=== PATIENT | female | born 1970 | race American Indian/Alaskan Native ===

== ENCOUNTER 2021-10-12 11:23 | Emergency (ER) | payer OTHER ==
[2021-10-12 14:06] LABS: Basophils % (Auto) 0.6 % (0.0-1.8); Eosinophils # (Auto) 0.1 K/mm3 (0.0-0.4); Hematocrit 41.1 % (30.3-42.9); Hemoglobin 13.1 gm/dl (10.1-14.3); Lymphocytes # (Auto) 0.9 K/mm3 (1.2-5.4); Lymphocytes % (Auto) 15.1 % (13.4-35.0); Mean Corpuscular HGB Conc 32 % (30-34); Mean Corpuscular Volume 83 fl (79-97); Monocytes # (Auto) 0.3 K/mm3 (0.0-0.8); Monocytes % (Auto) 5.7 % (0.0-7.3); Platelet Count 228 K/mm3 (140-440); Red Blood Count 4.96 M/mm3 (3.65-5.03); Red Cell Distribution Width 15.8 % (13.2-15.2)
[2021-10-12] MEDS ORDERED: KETOROLAC 10 MG TAB PO ONE (14:27)
[2021-10-12] MEDS ORDERED: ONDANSETRON 4 MG ODT TAB PO ONE (14:27)
[2021-10-12 14:30] LABS: Alanine Aminotransferase 17 units/L (7-56); Blood Urea Nitrogen 14 mg/dL (7-17); Calcium 9.9 mg/dL (8.4-10.2); Hemolysis Index 12
[2021-10-12 14:31] LABS: BUN/Creatinine Ratio 20
[2021-10-12 17:02] LABS: Bacteria,Urine 1+ /HPF (Negative); Bilirubin,Urine NEG (Negative); Blood,Urine NEG (Negative); Color,Urine Yellow (Yellow); Mucus,Urine 1+ /HPF; Urobilinogen,Urine < 2.0 mg/dL (<2.0)
[2021-10-12] MEDS ORDERED: cephALEXin 500 MG CAP PO ONE (17:11)
--- NOTE | 2021-10-12 17:14 | Emergency Department Report ---
ED Abdominal Pain HPI - General Chief Complaint: Abdominal Pain Stated Complaint: LOWER ABD PAIN/REF BY [facility] Time Seen by Provider: 10/12/21 14:25 Source: patient Mode of arrival: Ambulatory Limitations: No Limitations - History of Present Illness Initial Comments: 50-year-old black female with no past medical history presents to the emergency department for evaluation of 2-day history of lower abdominal pain and dysuria. She denies nausea vomiting diarrhea fever and vaginal discharge. She states states that she has had some decrease in appetite. MD Complaint: abdominal pain -: Gradual, days(s) (2) Location: LLQ, RLQ Radiation: none Severity scale (0 -10): 10 Quality: cramping, aching Consistency: intermittent Worsens With: other (Urination) Associated Symptoms: nausea, vomiting, dysuria. denies: diarrhea, fever, chills, constipation, hematemesis, hematochezia, melena, hematuria, anorexia, syncope - Related Data LMP Date: 09/09/21 Previous Rx's Medication Instructions Recorded Last Taken Type Naproxen [Naprosyn] 500 mg PO BID #14 tab 10/12/21 Unknown Rx cephALEXin [Keflex] 500 mg PO Q12HR #14 cap 10/12/21 Unknown Rx Allergies Allergy/AdvReac Type Severity Reaction Status Date / Time No Known Allergies Allergy Unverified 10/12/21 13:14 ED Review of Systems ROS: Stated complaint: LOWER ABD PAIN/REF BY [facility] Other details as noted in HPI Comment: All other systems reviewed and negative Constitutional: denies: chills, diaphoresis, fever, malaise, weakness Eyes: denies: eye pain, eye discharge, vision change ENT: denies: ear pain, throat pain, dental pain Respiratory: denies: cough, orthopnea, shortness of breath, SOB with exertion Cardiovascular: denies: chest pain, palpitations, dyspnea on exertion, orthopnea, edema, syncope Endocrine: no symptoms reported Gastrointestinal: abdominal pain. denies: nausea, vomiting, diarrhea, constipation, hematemesis, melena, hematochezia Genitourinary: dysuria. denies: urgency, frequency, hematuria, discharge, abnormal menses, dyspareunia Musculoskeletal: back pain. denies: joint swelling, arthralgia, myalgia Skin: denies: rash, lesions Neurological: denies: headache, weakness Psychiatric: denies: anxiety, depression Hematological/Lymphatic: denies: easy bleeding, easy bruising ED Past Medical Hx - Medications Home Medications: Home Medications Medication Instructions Recorded Confirmed Last Taken Type Naproxen [Naprosyn] 500 mg PO BID #14 tab 10/12/21 Unknown Rx cephALEXin [Keflex] 500 mg PO Q12HR #14 cap 10/12/21 Unknown Rx ED Physical Exam - General Limitations: No Limitations General appearance: alert, in no apparent distress - Head Head exam: Present: atraumatic, normocephalic - Eye Eye exam: Present: normal appearance. Absent: conjunctival injection - Neck Neck exam: Present: normal inspection, full ROM - Respiratory Respiratory exam: Present: normal lung sounds bilaterally. Absent: respiratory distress, wheezes, rales, rhonchi, stridor, chest wall tenderness, accessory muscle use, decreased breath sounds - Cardiovascular Cardiovascular Exam: Present: regular rate, normal heart sounds - GI/Abdominal GI/Abdominal exam: Present: soft, tenderness (bilateral lower quadrants), normal bowel sounds. Absent: distended, guarding, rebound, rigid - Extremities Exam Extremities exam: Present: normal inspection, full ROM - Back Exam Back exam: Present: normal inspection, CVA tenderness (R), CVA tenderness (L). Absent: full ROM, tenderness, muscle spasm, paraspinal tenderness, vertebral tenderness - Neurological Exam Neurological exam: Present: alert, oriented X3 - Psychiatric Psychiatric exam: Present: normal affect, normal mood - Skin Skin exam: Present: warm, dry, intact, normal color ED Course Vital Signs 10/12/21 10/12/21 10/12/21 12:54 14:51 17:21 Temperature 99.4 F 98.2 F Pulse Rate 78 77 Respiratory 16 14 Rate Blood Pressure 142/88 142/80 [Right] O2 Sat by Pulse 100 Oximetry ED Medical Decision Making - Lab Data Result diagrams: 10/12/21 13:47 10/12/21 13:47 - Medical Decision Making 50-year-old black female with no past medical history presents to the emergency department for evaluation of 2-day history of lower abdominal pain and dysuria. She denies nausea vomiting diarrhea fever and vaginal discharge. She states states that she has had some decrease in appetite. No gross abnormalities to CBC and CMP. UA noted to be positive for leukocyte Estrace and large amounts of WBCs. Patient will be treated for urinary tract infection with Keflex 500 mg p.o. twice daily for 7 days. She was given her first dose here along with 1 Toradol 10 mg p.o. twice daily. She was advised to take medications as prescribed, and follow-up with her primary care provider if no improvement or worsening symptoms. She was advised to follow-up in the emergency department if she has any concerning symptoms or if she develops fever or worsening abdominal pain. She verbalized understanding of and agreement with plan of care. Critical care attestation.: If time is entered above; I have spent that time in minutes in the direct care of this critically ill patient, excluding procedure time. ED Disposition Clinical Impression: UTI (urinary tract infection) Qualifiers: Urinary tract infection type: acute cystitis Hematuria presence: without hematuria Qualified Code(s): N30.00 - Acute cystitis without hematuria Disposition: HOME / SELF CARE / HOMELESS Is pt being admited?: No Does the pt Need Aspirin: No Condition: Stable Instructions: Urinary Tract Infection, Adult, [id number], Abdominal Pain (ED) Additional Instructions: Take medications as prescribed. Drink plenty of noncaffeinated fluids. Follow- up with primary care provider if no improvement or worsening symptoms. Prescriptions: cephALEXin [Keflex] 500 mg PO Q12HR #14 cap Naproxen [Naprosyn] 500 mg PO BID #14 tab Referrals: PRIMARY CARE, [Primary Care Provider] - 3-5 Days Time of Disposition: 17:14
[2021-10-12 17:23] VITALS: BP 142/80
== END 2021-10-12 17:22 | disposition home or self-care (01) ==
LOC: ED 11:23
DX: N39.0 Urinary tract infection, site not specified (principal)
CPT/HCPCS: 36415; 80053; 81001; 83690; 85025; 87086; 99283; J3490; Q0162